=== PATIENT | male | born 1975 | race African-American/Black ===

== ENCOUNTER 2022-10-18 21:53 | Inpatient (IN) | payer OTHER ==
[~2022-10-18 21:53] MED LIST: ACETAMINOPHEN 325 MG TABLET (FP) PO PRN; BENZOCAINE/MENTHOL (CHLORASEPTIC ) LOZENGE MM PRN; BENZONATATE 200 MG CAPSULE PO PRN; BISMUTH SUBSALICYLATE 262 MG/15 ML BTL PO PRN; DICYCLOMINE HCL 10 MG CAPSULE PO PRN; IBUPROFEN 400 MG TABLET (FP) PO PRN; LOPERAMIDE HCL 2 MG CAPSULE PO PRN; LORazepam 1 MG TABLET PO PRN; LORazepam 2 MG TABLET ONE; LORazepam 2 MG TABLET PO ONE; MAG HYDROX/AL HYDROX/SIMETH 30 ML UNIT-DOSE CUP PO PRN; MAGNESIUM HYDROX 2400MG/30ML ORAL SUSPENSION 30 ML CUP PO PRN; NALOXONE HCL (KLOXXADO) 8 MG SPRAY NS PRN; NALOXONE HCL 0.4 MG/ML VIAL IM PRN; ONDANSETRON *ODT* 4 MG TABLET ONE; ONDANSETRON *ODT* 4 MG TABLET SL PRN; POLYETHYLENE GLYCOL (HEALTHYLAX) 3350 17 GM PACKET PO PRN; guaiFENesin 600 MG TABLET.ER (FP) PO PRN
[2022-10-18 22:29] VITALS: BMI 24.2
[2022-10-19] MEDS: IBUPROFEN 600 MG TABLET (FP) PO PRN ×3 (00:55→14:26)
[2022-10-19] MEDS: LORazepam 2 MG TABLET PO SCH ×5 (07:17→22:06)
[2022-10-19] MEDS: METHOCARBAMOL 500 MG TABLET PO PRN ×3 (07:55→22:06)
[2022-10-19] MEDS: NICOTINE 21 MG/24 HOURS TOPICAL PATCH TD SCH (10:41)
[2022-10-19] MEDS: hydrOXYzine PAMOATE 25 MG CAPSULE (FP) PO PRN (10:42)
[2022-10-19] MEDS: PRENATAL VITAMINS W/ FOLIC ACID TABLET (FP) PO SCH (10:44)
[2022-10-19 11:31] LABS: HEMATOCRIT 38.6 % (35.4-49); HEMOGLOBIN 13.4 GM/dL (11.7-16.9); MCH 31.8 pg (25.7-33.7); MCHC 34.7 g/dl (32.0-35.9); MEAN CELL VOLUME 91.7 fl (80-96); MEAN PLT VOLUME 10.5 fl (7.5-11.1); PLATELET COUNT 107 10^3/uL (134-434); RBC 4.21 M/mm3 (4.00-5.60); RDW 12.9 % (11.9-15.9); WHITE BLOOD COUNT 3.5 K/mm3 (4.0-10.0)
[2022-10-19 11:56] LABS: CALCIUM 8.9 mg/dL (8.5-10.1)
[2022-10-19 11:57] LABS: ALBUMIN 3.3 g/dl (3.4-5.0); BLOOD UREA NITROGEN 13.2 mg/dL (7-18)
[2022-10-19 12:00] LABS: CREATININE 0.9 mg/dL (0.55-1.3)
[2022-10-19 12:01] LABS: TOT PROT 7.3 g/dl (6.4-8.2)
[2022-10-19 12:02] LABS: BILIRUBIN,TOTAL 0.8 mg/dL (0.2-1)
[2022-10-19] MEDS: LACTULOSE 20 GM/30 ML UDC (FOR ORAL USE ONLY) PO SCH ×3 (14:23→22:26)
[2022-10-19] MEDS: THIAMINE HCL 100 MG TABLET (FP) PO SCH (22:04)
[2022-10-19] MEDS: MELATONIN 5 MG TABLETS PO SCH (22:05)
[2022-10-19] MEDS: ATORVASTATIN CA 40 MG TABLET (FP) PO SCH (22:06)
[2022-10-20] MEDS: NICOTINE 21 MG/24 HOURS TOPICAL PATCH TD SCH ×2 (00:58→10:23)
[2022-10-20] MEDS: THIAMINE HCL 100 MG TABLET (FP) PO SCH ×2 (00:59→22:13)
[2022-10-20] MEDS: LORazepam 2 MG TABLET PO SCH ×2 (00:59→01:00)
[2022-10-20] MEDS: MELATONIN 5 MG TABLETS PO SCH ×2 (00:59→22:14)
[2022-10-20] MEDS: LORazepam 1 MG TABLET PO SCH ×4 (06:25→22:13)
[2022-10-20] MEDS: METHOCARBAMOL 500 MG TABLET PO PRN ×2 (06:29→20:45)
[2022-10-20] MEDS: IBUPROFEN 600 MG TABLET (FP) PO PRN ×2 (06:30→20:45)
[2022-10-20] MEDS: LACTULOSE 20 GM/30 ML UDC (FOR ORAL USE ONLY) PO SCH ×4 (10:24→22:13)
[2022-10-20] MEDS: hydrOXYzine PAMOATE 25 MG CAPSULE (FP) PO PRN (10:24)
[2022-10-20] MEDS: PRENATAL VITAMINS W/ FOLIC ACID TABLET (FP) PO SCH (10:24)
[2022-10-20] MEDS ORDERED: PNEUMOC 20-VAL CONJ-DIP CRM/PF 0.5 ML SYRINGE IM ONE (12:00)
[2022-10-20] MEDS: DOCUSATE SODIUM 100 MG CAPSULE (FP) PO SCH ×2 (13:14→22:13)
[2022-10-20] MEDS: ATORVASTATIN CA 40 MG TABLET (FP) PO SCH (22:13)
[2022-10-21] MEDS ORDERED: LORazepam 0.5 MG TABLET PO PRN
[2022-10-21] MEDS: METHOCARBAMOL 500 MG TABLET PO PRN ×3 (02:04→17:13)
[2022-10-21] MEDS: hydrOXYzine PAMOATE 25 MG CAPSULE (FP) PO PRN ×2 (02:04→10:24)
[2022-10-21] MEDS: DOCUSATE SODIUM 100 MG CAPSULE (FP) PO SCH ×3 (05:18→22:12)
[2022-10-21] MEDS: LORazepam 0.5 MG TABLET PO SCH ×4 (05:18→22:12)
[2022-10-21] MEDS: IBUPROFEN 600 MG TABLET (FP) PO PRN (05:20)
[2022-10-21] MEDS: LACTULOSE 20 GM/30 ML UDC (FOR ORAL USE ONLY) PO SCH ×4 (10:23→22:13)
[2022-10-21] MEDS: NICOTINE 21 MG/24 HOURS TOPICAL PATCH TD SCH (10:23)
[2022-10-21] MEDS: PRENATAL VITAMINS W/ FOLIC ACID TABLET (FP) PO SCH (10:23)
[2022-10-21] MEDS ORDERED: LISINOPRIL 5 MG TABLET PO ONE (13:45)
[2022-10-21] MEDS: ATORVASTATIN CA 40 MG TABLET (FP) PO SCH (22:12)
[2022-10-21] MEDS: THIAMINE HCL 100 MG TABLET (FP) PO SCH (22:12)
[2022-10-21] MEDS: MELATONIN 5 MG TABLETS PO SCH (22:12)
[2022-10-22] MEDS ORDERED: LORazepam 0.5 MG TABLET PO ONE (05:00)
[2022-10-22] MEDS: DOCUSATE SODIUM 100 MG CAPSULE (FP) PO SCH (05:22)
[2022-10-22] MEDS: IBUPROFEN 600 MG TABLET (FP) PO PRN ×2 (05:23→10:26)
[2022-10-22] MEDS: METHOCARBAMOL 500 MG TABLET PO PRN (05:23)
[2022-10-22 09:24] VITALS: BP 136/90; PULSE 93; RESP 17; TEMP 97.7
[2022-10-22] MEDS: LACTULOSE 20 GM/30 ML UDC (FOR ORAL USE ONLY) PO SCH (10:24)
[2022-10-22] MEDS: NICOTINE 21 MG/24 HOURS TOPICAL PATCH TD SCH (10:24)
[2022-10-22] MEDS: PRENATAL VITAMINS W/ FOLIC ACID TABLET (FP) PO SCH (10:24)
== END 2022-10-22 12:54 | disposition home or self-care (01) | DRG 775 ==
LOC: YASAS 21:53 → Y6N 23:48
PROVIDERS: ADMIT Allergy & Immunology; ATTEND Surgery
PROC: HZ2ZZZZ Detoxification Services for Substance Abuse Treatment (ICD-10-PCS; principal; 2022-10-18)
DX: F10.230 Alcohol dependence with withdrawal, uncomplicated (principal); F15.10 Other stimulant abuse, uncomplicated; F12.10 Cannabis abuse, uncomplicated; F17.210 Nicotine dependence, cigarettes, uncomplicated; F10.280 Alcohol dependence with alcohol-induced anxiety disorder; F10.24 Alcohol dependence with alcohol-induced mood disorder; F10.282 Alcohol dependence with alcohol-induced sleep disorder; K92.2 Gastrointestinal hemorrhage, unspecified; E78.5 Hyperlipidemia, unspecified; I10 Essential (primary) hypertension; R79.89 Other specified abnormal findings of blood chemistry; Z59.00 Homelessness unspecified; Z56.0 Unemployment, unspecified
CPT/HCPCS: 0241U-QW; 36415; 74177-TC; 80053; 82140; 82272; 83605; 83690; 83735; 85025; 85027; 85610; 85730; 86780; 86850; 86900; 86901; 87635; 90677; 93005; 93010; 99282-25; Q0162; Q9967

== ENCOUNTER 2022-11-09 15:00 | Inpatient (IN) | payer OTHER ==
[2022-11-09 15:47] VITALS: BMI 23.3
[2022-11-09] MEDS ORDERED: LOPERAMIDE HCL 2 MG CAPSULE PO PRN (21:24)
[2022-11-09] MEDS ORDERED: guaiFENesin 600 MG TABLET.ER (FP) PO PRN (21:24)
[2022-11-09] MEDS ORDERED: hydrOXYzine PAMOATE 25 MG CAPSULE (FP) PO PRN (21:24)
[2022-11-09] MEDS ORDERED: POLYETHYLENE GLYCOL (HEALTHYLAX) 3350 17 GM PACKET PO PRN (21:24)
[2022-11-09] MEDS ORDERED: ONDANSETRON *ODT* 4 MG TABLET SL PRN (21:24)
[2022-11-09] MEDS ORDERED: BISMUTH SUBSALICYLATE 524 MG/30 ML PO PRN (21:24)
[2022-11-09] MEDS ORDERED: MAG HYDROX/AL HYDROX/SIMETH 30 ML UNIT-DOSE CUP PO PRN (21:24)
[2022-11-09] MEDS ORDERED: IBUPROFEN 400 MG TABLET (FP) PO PRN (21:24)
[2022-11-09] MEDS ORDERED: ACETAMINOPHEN 325 MG TABLET (FP) PO PRN (21:24)
[2022-11-09] MEDS ORDERED: NALOXONE HCL 0.4 MG/ML VIAL IM PRN (21:24)
[2022-11-09] MEDS ORDERED: NICOTINE 10 MG CARTRIDGE (INHALER) IH PRN (21:24)
[2022-11-09] MEDS ORDERED: BENZOCAINE/MENTHOL (CHLORASEPTIC ) LOZENGE MM PRN (21:24)
[2022-11-09] MEDS ORDERED: DICYCLOMINE HCL 10 MG CAPSULE PO PRN (21:24)
[2022-11-09] MEDS ORDERED: NALOXONE HCL (KLOXXADO) 8 MG SPRAY NS PRN (21:24)
[2022-11-09] MEDS ORDERED: BENZONATATE 200 MG CAPSULE PO PRN (21:24)
[2022-11-09] MEDS ORDERED: MAGNESIUM HYDROX 2400MG/30ML ORAL SUSPENSION 30 ML CUP PO PRN (21:24)
[2022-11-09] MEDS ORDERED: LORazepam 1 MG TABLET PO PRN (21:29)
[2022-11-09] MEDS ORDERED: MELATONIN 5 MG TABLETS PO SCH (22:00)
[2022-11-09] MEDS ORDERED: IBUPROFEN 600 MG TABLET (FP) PO ONE (22:16)
[2022-11-09] MEDS: IBUPROFEN 600 MG TABLET (FP) PO PRN (22:19)
[2022-11-09] MEDS: LORazepam 2 MG TABLET PO SCH (23:14)
[2022-11-09] MEDS: METHOCARBAMOL 500 MG TABLET PO PRN (23:14)
[2022-11-09] MEDS: THIAMINE HCL 100 MG TABLET (FP) PO SCH (23:14)
[2022-11-10] MEDS: LORazepam 2 MG TABLET PO SCH ×4 (05:54→22:16)
[2022-11-10] MEDS: IBUPROFEN 600 MG TABLET (FP) PO PRN (05:56)
[2022-11-10] MEDS: PRENATAL VITAMINS W/ FOLIC ACID TABLET (FP) PO SCH (10:14)
[2022-11-10] MEDS: NICOTINE 21 MG/24 HOURS TOPICAL PATCH TD SCH (10:14)
[2022-11-10 11:44] LABS: HEMATOCRIT 37.5 % (35.4-49); HEMOGLOBIN 12.5 GM/dL (11.7-16.9); MCH 30.8 pg (25.7-33.7); MCHC 33.4 g/dl (32.0-35.9); MEAN CELL VOLUME 92.3 fl (80-96); MEAN PLT VOLUME 9.7 fl (7.5-11.1); PLATELET COUNT 103 10^3/uL (134-434); RBC 4.07 M/mm3 (4.00-5.60); RDW 12.7 % (11.9-15.9); WHITE BLOOD COUNT 3.2 K/mm3 (4.0-10.0)
[2022-11-10 11:45] LABS: POTASSIUM 3.9 mmol/L (3.5-5.1)
[2022-11-10 11:47] LABS: ALBUMIN 3.3 g/dl (3.4-5.0); CALCIUM 8.9 mg/dL (8.5-10.1)
[2022-11-10 11:48] LABS: BLOOD UREA NITROGEN 13.2 mg/dL (7-18)
[2022-11-10 11:51] LABS: CREATININE 0.8 mg/dL (0.55-1.3)
[2022-11-10 11:52] LABS: BILIRUBIN,TOTAL 0.5 mg/dL (0.2-1)
[2022-11-10] MEDS: MELATONIN 5 MG TABLETS PO SCH (22:15)
[2022-11-10] MEDS: THIAMINE HCL 100 MG TABLET (FP) PO SCH (22:15)
[2022-11-10] MEDS: METHOCARBAMOL 500 MG TABLET PO PRN (22:15)
[2022-11-10] MEDS: ATORVASTATIN CA 40 MG TABLET (FP) PO SCH (22:17)
[2022-11-11] MEDS: LORazepam 1 MG TABLET PO SCH ×4 (05:35→22:06)
[2022-11-11] MEDS: NICOTINE 21 MG/24 HOURS TOPICAL PATCH TD SCH (10:23)
[2022-11-11] MEDS: PRENATAL VITAMINS W/ FOLIC ACID TABLET (FP) PO SCH (10:23)
[2022-11-11 21:50] VITALS: RESP 18
[2022-11-11] MEDS: ATORVASTATIN CA 40 MG TABLET (FP) PO SCH (22:05)
[2022-11-11] MEDS: THIAMINE HCL 100 MG TABLET (FP) PO SCH (22:05)
[2022-11-11] MEDS: MELATONIN 5 MG TABLETS PO SCH (22:05)
[2022-11-11] MEDS: METHOCARBAMOL 500 MG TABLET PO PRN (22:08)
[2022-11-12] MEDS ORDERED: LORazepam 0.5 MG TABLET PO PRN
[2022-11-12] MEDS: LORazepam 0.5 MG TABLET PO SCH ×3 (05:24→17:00)
[2022-11-12] MEDS: PRENATAL VITAMINS W/ FOLIC ACID TABLET (FP) PO SCH (10:28)
[2022-11-12] MEDS: IBUPROFEN 600 MG TABLET (FP) PO PRN (10:28)
[2022-11-12] MEDS: NICOTINE 21 MG/24 HOURS TOPICAL PATCH TD SCH (10:28)
[2022-11-12 19:05] VITALS: BP 157/101; PULSE 79; TEMP 97.7
[2022-11-13] MEDS ORDERED: LORazepam 0.5 MG TABLET PO ONE (05:00)
== END 2022-11-12 17:06 | disposition home or self-care (01) | DRG 775 ==
LOC: YASAS 15:00 → Y3N 22:45
PROVIDERS: ADMIT Allergy & Immunology; ATTEND Surgery
PROC: HZ2ZZZZ Detoxification Services for Substance Abuse Treatment (ICD-10-PCS; principal; 2022-11-09)
DX: F10.230 Alcohol dependence with withdrawal, uncomplicated (principal); F17.210 Nicotine dependence, cigarettes, uncomplicated; F10.282 Alcohol dependence with alcohol-induced sleep disorder; F10.24 Alcohol dependence with alcohol-induced mood disorder; E78.5 Hyperlipidemia, unspecified; I10 Essential (primary) hypertension; Z87.19 Personal history of other diseases of the digestive system; Z56.0 Unemployment, unspecified; Z59.00 Homelessness unspecified; Z88.0 Allergy status to penicillin
CPT/HCPCS: 36415; 80053; 85027; 86780; 87635

== ENCOUNTER 2023-02-25 11:48 | Inpatient (IN) | payer OTHER ==
[2023-02-25 12:37] VITALS: BMI 24.2
[2023-02-25] MEDS ORDERED: BENZONATATE 200 MG CAPSULE PO PRN (14:42)
[2023-02-25] MEDS ORDERED: DICYCLOMINE HCL 10 MG CAPSULE PO PRN (14:42)
[2023-02-25] MEDS ORDERED: chlordiazePOXIDE HCL 25 MG CAPSULE PO PRN (14:42)
[2023-02-25] MEDS ORDERED: NALOXONE HCL 0.4 MG/ML VIAL IM PRN (14:42)
[2023-02-25] MEDS ORDERED: POLYETHYLENE GLYCOL (HEALTHYLAX) 3350 17 GM PACKET PO PRN (14:42)
[2023-02-25] MEDS ORDERED: MAG HYDROX/AL HYDROX/SIMETH 30 ML UNIT-DOSE CUP PO PRN (14:42)
[2023-02-25] MEDS ORDERED: ONDANSETRON *ODT* 4 MG TABLET SL PRN (14:42)
[2023-02-25] MEDS ORDERED: NALOXONE HCL (KLOXXADO) 8 MG SPRAY NS PRN (14:42)
[2023-02-25] MEDS ORDERED: BENZOCAINE/MENTHOL (CHLORASEPTIC ) LOZENGE MM PRN (14:42)
[2023-02-25] MEDS ORDERED: LOPERAMIDE HCL 2 MG CAPSULE PO PRN (14:42)
[2023-02-25] MEDS ORDERED: BISMUTH SUBSALICYLATE 524 MG/30 ML PO PRN (14:42)
[2023-02-25] MEDS ORDERED: MAGNESIUM HYDROX 2400MG/30ML ORAL SUSPENSION 30 ML CUP PO PRN (14:42)
[2023-02-25] MEDS ORDERED: guaiFENesin 600 MG TABLET.ER (FP) PO PRN (14:42)
[2023-02-25] MEDS: hydrOXYzine PAMOATE 25 MG CAPSULE (FP) PO PRN (15:40)
[2023-02-25] MEDS: NICOTINE 21 MG/24 HOURS TOPICAL PATCH TD SCH (15:40)
[2023-02-25] MEDS: chlordiazePOXIDE HCL 25 MG CAPSULE PO SCH ×2 (17:16→22:27)
[2023-02-25] MEDS: ATORVASTATIN CA 40 MG TABLET (FP) PO SCH (22:26)
[2023-02-25] MEDS: MELATONIN 5 MG TABLETS PO SCH (22:27)
[2023-02-25] MEDS: THIAMINE HCL 100 MG TABLET (FP) PO SCH (22:27)
[2023-02-25] MEDS: ACETAMINOPHEN 325 MG TABLET (FP) PO PRN (22:28)
[2023-02-25] MEDS: cloNIDine HCL 0.1 MG TABLET PO PRN (22:28)
[2023-02-26] MEDS: chlordiazePOXIDE HCL 25 MG CAPSULE PO SCH ×4 (05:48→22:26)
[2023-02-26] MEDS: IBUPROFEN 400 MG TABLET (FP) PO PRN (05:49)
[2023-02-26] MEDS: PRENATAL VITAMINS W/ FOLIC ACID TABLET (FP) PO SCH (10:09)
[2023-02-26] MEDS: NICOTINE 21 MG/24 HOURS TOPICAL PATCH TD SCH (10:09)
[2023-02-26 10:28] LABS: HEMATOCRIT 36.9 % (35.4-49); HEMOGLOBIN 12.8 GM/dL (11.7-16.9); MCH 32.3 pg (25.7-33.7); MCHC 34.6 g/dl (32.0-35.9); MEAN CELL VOLUME 93.4 fl (80-96); MEAN PLT VOLUME 9.7 fl (7.5-11.1); PLATELET COUNT 110 10^3/uL (134-434); RBC 3.95 M/mm3 (4.00-5.60); RDW 13.2 % (11.9-15.9); WHITE BLOOD COUNT 2.9 K/mm3 (4.0-10.0)
[2023-02-26 11:21] LABS: POTASSIUM 3.9 mmol/L (3.5-5.1)
[2023-02-26 11:24] LABS: CALCIUM 8.4 mg/dL (8.5-10.1)
[2023-02-26 11:25] LABS: BLOOD UREA NITROGEN 15.7 mg/dL (7-18)
[2023-02-26 11:27] LABS: CREATININE 0.8 mg/dL (0.55-1.3)
[2023-02-26 11:28] LABS: BILIRUBIN,TOTAL 0.4 mg/dL (0.2-1); TOT PROT 6.4 g/dl (6.4-8.2)
[2023-02-26] MEDS: HYDROCORTISONE 1% TOPICAL CREAM 30 GM TUBE TP SCH (15:52)
[2023-02-26] MEDS: cloNIDine HCL 0.1 MG TABLET PO PRN ×2 (17:47→22:28)
[2023-02-26] MEDS: ACETAMINOPHEN 325 MG TABLET (FP) PO PRN (17:48)
[2023-02-26] MEDS: MELATONIN 5 MG TABLETS PO SCH (22:26)
[2023-02-26] MEDS: ATORVASTATIN CA 40 MG TABLET (FP) PO SCH (22:26)
[2023-02-26] MEDS: THIAMINE HCL 100 MG TABLET (FP) PO SCH (22:26)
[2023-02-26] MEDS: METHOCARBAMOL 500 MG TABLET PO PRN (22:28)
[2023-02-27] MEDS: IBUPROFEN 600 MG TABLET (FP) PO PRN ×2 (03:16→17:23)
[2023-02-27] MEDS: chlordiazePOXIDE HCL 25 MG CAPSULE PO SCH ×4 (05:24→22:09)
[2023-02-27] MEDS: PRENATAL VITAMINS W/ FOLIC ACID TABLET (FP) PO SCH (10:15)
[2023-02-27] MEDS: HYDROCORTISONE 1% TOPICAL CREAM 30 GM TUBE TP SCH (10:18)
[2023-02-27] MEDS: NICOTINE 21 MG/24 HOURS TOPICAL PATCH TD SCH (10:18)
[2023-02-27] MEDS: LIDOCAINE 5% TOPICAL PATCH TP SCH (11:48)
[2023-02-27] MEDS: METHOCARBAMOL 500 MG TABLET PO PRN (17:23)
[2023-02-27] MEDS: LIDOCAINE PATCH REMOVAL MC SCH (22:08)
[2023-02-27] MEDS: MELATONIN 5 MG TABLETS PO SCH (22:09)
[2023-02-27] MEDS: THIAMINE HCL 100 MG TABLET (FP) PO SCH (22:09)
[2023-02-27] MEDS: ATORVASTATIN CA 40 MG TABLET (FP) PO SCH (22:09)
[2023-02-28] MEDS ORDERED: chlordiazePOXIDE HCL 10 MG CAPSULE PO PRN
[2023-02-28] MEDS: chlordiazePOXIDE HCL 10 MG CAPSULE PO SCH ×4 (05:45→22:05)
[2023-02-28] MEDS ORDERED: LACTULOSE 20 GM/30 ML UDC (FOR ORAL USE ONLY) PO ONE (07:40)
[2023-02-28] MEDS: PRENATAL VITAMINS W/ FOLIC ACID TABLET (FP) PO SCH (10:07)
[2023-02-28] MEDS: HYDROCORTISONE 1% TOPICAL CREAM 30 GM TUBE TP SCH (10:07)
[2023-02-28] MEDS: NICOTINE 21 MG/24 HOURS TOPICAL PATCH TD SCH (10:07)
[2023-02-28] MEDS: LIDOCAINE 5% TOPICAL PATCH TP SCH (10:10)
[2023-02-28] MEDS: ACETAMINOPHEN 325 MG TABLET (FP) PO PRN (17:24)
[2023-02-28] MEDS: THIAMINE HCL 100 MG TABLET (FP) PO SCH (22:05)
[2023-02-28] MEDS: MELATONIN 5 MG TABLETS PO SCH (22:05)
[2023-02-28] MEDS: ATORVASTATIN CA 40 MG TABLET (FP) PO SCH (22:05)
[2023-02-28] MEDS: LIDOCAINE PATCH REMOVAL MC SCH (22:06)
[2023-02-28] MEDS: METHOCARBAMOL 500 MG TABLET PO PRN (22:07)
[2023-03-01] MEDS: ACETAMINOPHEN 325 MG TABLET (FP) PO PRN (00:56)
[2023-03-01] MEDS: chlordiazePOXIDE HCL 10 MG CAPSULE PO SCH ×2 (05:42→17:39)
[2023-03-01] MEDS: LIDOCAINE 5% TOPICAL PATCH TP SCH (10:09)
[2023-03-01] MEDS: NICOTINE 21 MG/24 HOURS TOPICAL PATCH TD SCH (10:10)
[2023-03-01] MEDS: PRENATAL VITAMINS W/ FOLIC ACID TABLET (FP) PO SCH (10:11)
[2023-03-01] MEDS: HYDROCORTISONE 1% TOPICAL CREAM 30 GM TUBE TP SCH (10:11)
[2023-03-01] MEDS: LIDOCAINE PATCH REMOVAL MC SCH (22:02)
[2023-03-01] MEDS: IBUPROFEN 400 MG TABLET (FP) PO PRN (22:03)
[2023-03-01] MEDS: MELATONIN 5 MG TABLETS PO SCH (22:04)
[2023-03-01] MEDS: METHOCARBAMOL 500 MG TABLET PO PRN (22:04)
[2023-03-01] MEDS: hydrOXYzine PAMOATE 25 MG CAPSULE (FP) PO PRN (22:04)
[2023-03-01] MEDS: THIAMINE HCL 100 MG TABLET (FP) PO SCH (22:05)
[2023-03-01] MEDS: ATORVASTATIN CA 40 MG TABLET (FP) PO SCH (22:05)
[2023-03-02] MEDS ORDERED: chlordiazePOXIDE HCL 10 MG CAPSULE PO ONE (05:00)
[2023-03-02 09:53] VITALS: TEMP 97.3
[2023-03-02] MEDS: PRENATAL VITAMINS W/ FOLIC ACID TABLET (FP) PO SCH (10:21)
[2023-03-02] MEDS: LIDOCAINE 5% TOPICAL PATCH TP SCH (10:23)
[2023-03-02] MEDS: HYDROCORTISONE 1% TOPICAL CREAM 30 GM TUBE TP SCH (10:24)
[2023-03-02] MEDS: NICOTINE 21 MG/24 HOURS TOPICAL PATCH TD SCH (10:24)
[2023-03-02 14:26] VITALS: BP 136/86; PULSE 80; RESP 17
== END 2023-03-02 14:30 | disposition home or self-care (01) | DRG 775 ==
LOC: SUATTDRO 11:48 → YASAS 11:48 → Y3N 14:59
PROVIDERS: ADMIT Allergy & Immunology; ATTEND Surgery
PROC: HZ2ZZZZ Detoxification Services for Substance Abuse Treatment (ICD-10-PCS; principal; 2023-02-25)
DX: F10.230 Alcohol dependence with withdrawal, uncomplicated (principal); F12.10 Cannabis abuse, uncomplicated; F17.210 Nicotine dependence, cigarettes, uncomplicated; E78.2 Mixed hyperlipidemia; I10 Essential (primary) hypertension; Z88.0 Allergy status to penicillin
CPT/HCPCS: 36415; 80053; 85027; 86780; 87635; 87811

== ENCOUNTER 2023-03-02 14:42 | Inpatient (IN) | payer OTHER ==
[2023-03-02] MEDS ORDERED: FLU VACCINE (FLULAVAL) PF 60 MCG/0.5 ML SYRINGE 2023-2024 IM ONE (15:44)
[2023-03-02] MEDS ORDERED: COLLOIDAL OATMEAL 1 BAR EACH TP PRN (15:52)
[2023-03-02] MEDS ORDERED: NICOTINE POLACRILEX 4 MG GUM BUC PRN (15:52)
[2023-03-02] MEDS ORDERED: BENZONATATE 200 MG CAPSULE PO PRN (15:52)
[2023-03-02] MEDS ORDERED: NALOXONE HCL 0.4 MG/ML VIAL IVPUSH PRN (15:52)
[2023-03-02] MEDS ORDERED: guaiFENesin 600 MG TABLET.ER (FP) PO PRN (15:52)
[2023-03-02] MEDS ORDERED: ACETAMINOPHEN 325 MG TABLET (FP) PO PRN (15:52)
[2023-03-02] MEDS ORDERED: NALOXONE HCL (KLOXXADO) 8 MG SPRAY NS PRN (15:52)
[2023-03-02] MEDS ORDERED: MAGNESIUM HYDROX 2400MG/30ML ORAL SUSPENSION 30 ML CUP PO PRN (15:52)
[2023-03-02] MEDS ORDERED: MAG HYDROX/AL HYDROX/SIMETH 30 ML UNIT-DOSE CUP PO PRN (15:52)
[2023-03-02] MEDS ORDERED: LOPERAMIDE HCL 2 MG CAPSULE PO PRN (15:52)
[2023-03-02] MEDS ORDERED: BENZOCAINE/MENTHOL (CHLORASEPTIC ) LOZENGE MM PRN (15:52)
[2023-03-02] MEDS ORDERED: hydrOXYzine PAMOATE 25 MG CAPSULE (FP) PO PRN (15:52)
[2023-03-02] MEDS ORDERED: POLYETHYLENE GLYCOL (HEALTHYLAX) 3350 17 GM PACKET PO PRN (15:52)
[2023-03-02] MEDS: PRENATAL VITAMINS W/ FOLIC ACID TABLET (FP) PO SCH (16:58)
[2023-03-02] MEDS: MELATONIN 5 MG TABLETS PO SCH (21:14)
[2023-03-02] MEDS: THIAMINE HCL 100 MG TABLET (FP) PO SCH (21:14)
[2023-03-02] MEDS: IBUPROFEN 600 MG TABLET (FP) PO PRN (21:15)
[2023-03-02] MEDS: ATORVASTATIN CA 40 MG TABLET (FP) PO SCH (21:15)
[2023-03-03] MEDS: PRENATAL VITAMINS W/ FOLIC ACID TABLET (FP) PO SCH (09:47)
[2023-03-03] MEDS: NICOTINE 21 MG/24 HOURS TOPICAL PATCH TD SCH (09:47)
[2023-03-03] MEDS: METHOCARBAMOL 500 MG TABLET PO PRN (09:51)
[2023-03-03] MEDS ORDERED: FLU VACCINE (FLULAVAL) PF 60 MCG/0.5 ML SYRINGE 2023-2024 IM ONE (10:00)
[2023-03-03] MEDS: ATORVASTATIN CA 40 MG TABLET (FP) PO SCH (21:10)
[2023-03-03] MEDS: THIAMINE HCL 100 MG TABLET (FP) PO SCH (21:11)
[2023-03-03] MEDS: IBUPROFEN 400 MG TABLET (FP) PO PRN (21:11)
[2023-03-03] MEDS: MELATONIN 5 MG TABLETS PO SCH (21:11)
[2023-03-04] MEDS: METHOCARBAMOL 500 MG TABLET PO PRN (06:20)
[2023-03-04] MEDS: PRENATAL VITAMINS W/ FOLIC ACID TABLET (FP) PO SCH (09:21)
[2023-03-04] MEDS: NICOTINE 21 MG/24 HOURS TOPICAL PATCH TD SCH (09:21)
[2023-03-04] MEDS: MELATONIN 5 MG TABLETS PO SCH (21:06)
[2023-03-04] MEDS: THIAMINE HCL 100 MG TABLET (FP) PO SCH (21:06)
[2023-03-04] MEDS: ATORVASTATIN CA 40 MG TABLET (FP) PO SCH (21:07)
[2023-03-04] MEDS: IBUPROFEN 600 MG TABLET (FP) PO PRN (21:08)
[2023-03-05] MEDS: NICOTINE 21 MG/24 HOURS TOPICAL PATCH TD SCH (09:55)
[2023-03-05] MEDS: PRENATAL VITAMINS W/ FOLIC ACID TABLET (FP) PO SCH (09:55)
[2023-03-05] MEDS: ATORVASTATIN CA 40 MG TABLET (FP) PO SCH (21:26)
[2023-03-05] MEDS: MELATONIN 5 MG TABLETS PO SCH (21:26)
[2023-03-05] MEDS: THIAMINE HCL 100 MG TABLET (FP) PO SCH (21:26)
[2023-03-05] MEDS: IBUPROFEN 600 MG TABLET (FP) PO PRN (21:27)
[2023-03-06] MEDS: PRENATAL VITAMINS W/ FOLIC ACID TABLET (FP) PO SCH (10:14)
[2023-03-06] MEDS: NICOTINE 21 MG/24 HOURS TOPICAL PATCH TD SCH (10:14)
[2023-03-06] MEDS: LACTULOSE 20 GM/30 ML UDC (FOR ORAL USE ONLY) PO SCH ×2 (13:19→21:06)
[2023-03-06] MEDS: CLINDAMYCIN HCL 150 MG CAPSULE (FP) PO SCH ×2 (13:19→21:06)
[2023-03-06] MEDS: MELATONIN 5 MG TABLETS PO SCH (21:06)
[2023-03-06] MEDS: ATORVASTATIN CA 40 MG TABLET (FP) PO SCH (21:06)
[2023-03-06] MEDS: THIAMINE HCL 100 MG TABLET (FP) PO SCH (21:06)
[2023-03-07] MEDS: CLINDAMYCIN HCL 150 MG CAPSULE (FP) PO SCH ×3 (06:22→21:41)
[2023-03-07] MEDS: LACTULOSE 20 GM/30 ML UDC (FOR ORAL USE ONLY) PO SCH ×3 (06:22→21:41)
[2023-03-07] MEDS: NICOTINE 21 MG/24 HOURS TOPICAL PATCH TD SCH (09:36)
[2023-03-07] MEDS: PRENATAL VITAMINS W/ FOLIC ACID TABLET (FP) PO SCH (09:37)
[2023-03-07] MEDS: IBUPROFEN 600 MG TABLET (FP) PO PRN ×2 (09:38→21:42)
[2023-03-07] MEDS: ATORVASTATIN CA 40 MG TABLET (FP) PO SCH (21:41)
[2023-03-07] MEDS: THIAMINE HCL 100 MG TABLET (FP) PO SCH (21:41)
[2023-03-07] MEDS: MELATONIN 5 MG TABLETS PO SCH (21:42)
[2023-03-08] MEDS: CLINDAMYCIN HCL 150 MG CAPSULE (FP) PO SCH ×3 (06:23→21:12)
[2023-03-08] MEDS: LACTULOSE 20 GM/30 ML UDC (FOR ORAL USE ONLY) PO SCH ×3 (06:24→21:12)
[2023-03-08] MEDS: NICOTINE 21 MG/24 HOURS TOPICAL PATCH TD SCH (09:57)
[2023-03-08] MEDS: PRENATAL VITAMINS W/ FOLIC ACID TABLET (FP) PO SCH (09:57)
[2023-03-08] MEDS: ATORVASTATIN CA 40 MG TABLET (FP) PO SCH (21:12)
[2023-03-08] MEDS: THIAMINE HCL 100 MG TABLET (FP) PO SCH (21:12)
[2023-03-08] MEDS: MELATONIN 5 MG TABLETS PO SCH (21:12)
[2023-03-09] MEDS: LACTULOSE 20 GM/30 ML UDC (FOR ORAL USE ONLY) PO SCH ×3 (06:29→21:36)
[2023-03-09] MEDS: CLINDAMYCIN HCL 150 MG CAPSULE (FP) PO SCH ×3 (06:29→21:36)
[2023-03-09] MEDS: PRENATAL VITAMINS W/ FOLIC ACID TABLET (FP) PO SCH (10:09)
[2023-03-09] MEDS: NICOTINE 21 MG/24 HOURS TOPICAL PATCH TD SCH (10:09)
[2023-03-09] MEDS: IBUPROFEN 600 MG TABLET (FP) PO PRN (10:11)
[2023-03-09] MEDS: ATORVASTATIN CA 40 MG TABLET (FP) PO SCH (21:36)
[2023-03-09] MEDS: IBUPROFEN 400 MG TABLET (FP) PO PRN (21:36)
[2023-03-09] MEDS: THIAMINE HCL 100 MG TABLET (FP) PO SCH (21:38)
[2023-03-09] MEDS: MELATONIN 5 MG TABLETS PO SCH (23:15)
[2023-03-10] MEDS: CLINDAMYCIN HCL 150 MG CAPSULE (FP) PO SCH ×3 (06:11→21:06)
[2023-03-10] MEDS: LACTULOSE 20 GM/30 ML UDC (FOR ORAL USE ONLY) PO SCH ×3 (06:11→21:05)
[2023-03-10] MEDS: PRENATAL VITAMINS W/ FOLIC ACID TABLET (FP) PO SCH (09:34)
[2023-03-10] MEDS: NICOTINE 21 MG/24 HOURS TOPICAL PATCH TD SCH (09:34)
[2023-03-10] MEDS: IBUPROFEN 600 MG TABLET (FP) PO PRN (09:35)
[2023-03-10] MEDS: ATORVASTATIN CA 40 MG TABLET (FP) PO SCH (21:05)
[2023-03-10] MEDS: THIAMINE HCL 100 MG TABLET (FP) PO SCH (21:05)
[2023-03-10] MEDS: MELATONIN 5 MG TABLETS PO SCH (21:05)
[2023-03-11] MEDS: LACTULOSE 20 GM/30 ML UDC (FOR ORAL USE ONLY) PO SCH ×3 (06:17→21:24)
[2023-03-11] MEDS: CLINDAMYCIN HCL 150 MG CAPSULE (FP) PO SCH ×3 (06:17→21:24)
[2023-03-11] MEDS: NICOTINE 21 MG/24 HOURS TOPICAL PATCH TD SCH (09:40)
[2023-03-11] MEDS: PRENATAL VITAMINS W/ FOLIC ACID TABLET (FP) PO SCH (09:40)
[2023-03-11] MEDS: IBUPROFEN 600 MG TABLET (FP) PO PRN (09:41)
[2023-03-11] MEDS: MELATONIN 5 MG TABLETS PO SCH (21:25)
[2023-03-11] MEDS: ATORVASTATIN CA 40 MG TABLET (FP) PO SCH (21:25)
[2023-03-11] MEDS: IBUPROFEN 400 MG TABLET (FP) PO PRN (21:25)
[2023-03-11] MEDS: THIAMINE HCL 100 MG TABLET (FP) PO SCH (21:25)
[2023-03-12] MEDS: CLINDAMYCIN HCL 150 MG CAPSULE (FP) PO SCH ×3 (06:21→21:30)
[2023-03-12] MEDS: LACTULOSE 20 GM/30 ML UDC (FOR ORAL USE ONLY) PO SCH ×3 (06:21→21:30)
[2023-03-12] MEDS: PRENATAL VITAMINS W/ FOLIC ACID TABLET (FP) PO SCH (09:37)
[2023-03-12] MEDS: NICOTINE 21 MG/24 HOURS TOPICAL PATCH TD SCH (09:37)
[2023-03-12] MEDS: IBUPROFEN 400 MG TABLET (FP) PO PRN ×2 (09:38→21:31)
[2023-03-12] MEDS: THIAMINE HCL 100 MG TABLET (FP) PO SCH (21:29)
[2023-03-12] MEDS: ATORVASTATIN CA 40 MG TABLET (FP) PO SCH (21:29)
[2023-03-12] MEDS: MELATONIN 5 MG TABLETS PO SCH (21:45)
[2023-03-13] MEDS: CLINDAMYCIN HCL 150 MG CAPSULE (FP) PO SCH ×3 (06:16→21:18)
[2023-03-13] MEDS: LACTULOSE 20 GM/30 ML UDC (FOR ORAL USE ONLY) PO SCH ×3 (06:16→21:18)
[2023-03-13] MEDS: PRENATAL VITAMINS W/ FOLIC ACID TABLET (FP) PO SCH (09:57)
[2023-03-13] MEDS: NICOTINE 21 MG/24 HOURS TOPICAL PATCH TD SCH (09:58)
[2023-03-13] MEDS: IBUPROFEN 600 MG TABLET (FP) PO PRN (09:59)
[2023-03-13] MEDS ORDERED: NALTREXONE MICROSPHERES (VIVITROL) 380 MG DISP.SYRIN IM ONE (12:35)
[2023-03-13] MEDS ORDERED: NALTREXONE HCL 50 MG TABLET PO ONE (13:00)
[2023-03-13] MEDS ORDERED: NALTREXONE HCL 50 MG TABLET PO SCH (13:00)
[2023-03-13] MEDS: BENZOCAINE 20 % GEL TUBE MM PRN (13:03)
[2023-03-13] MEDS: THIAMINE HCL 100 MG TABLET (FP) PO SCH (21:18)
[2023-03-13] MEDS: MELATONIN 5 MG TABLETS PO SCH (21:18)
[2023-03-13] MEDS: ATORVASTATIN CA 40 MG TABLET (FP) PO SCH (21:18)
[2023-03-14] MEDS: LACTULOSE 20 GM/30 ML UDC (FOR ORAL USE ONLY) PO SCH ×3 (06:43→21:16)
[2023-03-14] MEDS: CLINDAMYCIN HCL 150 MG CAPSULE (FP) PO SCH ×3 (06:43→21:16)
[2023-03-14] MEDS: PRENATAL VITAMINS W/ FOLIC ACID TABLET (FP) PO SCH (09:46)
[2023-03-14] MEDS: BENZOCAINE 20 % GEL TUBE MM PRN ×2 (09:46→21:17)
[2023-03-14] MEDS: NICOTINE 21 MG/24 HOURS TOPICAL PATCH TD SCH (09:46)
[2023-03-14] MEDS: IBUPROFEN 600 MG TABLET (FP) PO PRN (09:47)
[2023-03-14] MEDS ORDERED: NALTREXONE HCL 50 MG TABLET PO SCH (10:00)
[2023-03-14] MEDS: NALTREXONE HCL 50 MG TABLET PO SCH (10:16)
[2023-03-14] MEDS: ATORVASTATIN CA 40 MG TABLET (FP) PO SCH (21:16)
[2023-03-14] MEDS: THIAMINE HCL 100 MG TABLET (FP) PO SCH (21:16)
[2023-03-14] MEDS: MELATONIN 5 MG TABLETS PO SCH (23:14)
[2023-03-15] MEDS: LACTULOSE 20 GM/30 ML UDC (FOR ORAL USE ONLY) PO SCH ×3 (06:13→21:16)
[2023-03-15] MEDS: CLINDAMYCIN HCL 150 MG CAPSULE (FP) PO SCH ×3 (06:13→21:16)
[2023-03-15] MEDS: PRENATAL VITAMINS W/ FOLIC ACID TABLET (FP) PO SCH (10:08)
[2023-03-15] MEDS: NICOTINE 21 MG/24 HOURS TOPICAL PATCH TD SCH (10:08)
[2023-03-15] MEDS: NALTREXONE HCL 50 MG TABLET PO SCH (10:08)
[2023-03-15] MEDS: BENZOCAINE 20 % GEL TUBE MM PRN (10:08)
[2023-03-15] MEDS: ATORVASTATIN CA 40 MG TABLET (FP) PO SCH (21:16)
[2023-03-15] MEDS: THIAMINE HCL 100 MG TABLET (FP) PO SCH (21:16)
[2023-03-15] MEDS: MELATONIN 5 MG TABLETS PO SCH (21:16)
[2023-03-16] MEDS ORDERED: NALTREXONE MICROSPHERES (VIVITROL) 380 MG DISP.SYRIN IM ONE ×2 (06:00→10:00)
[2023-03-16] MEDS: CLINDAMYCIN HCL 150 MG CAPSULE (FP) PO SCH ×2 (06:27→13:10)
[2023-03-16] MEDS: LACTULOSE 20 GM/30 ML UDC (FOR ORAL USE ONLY) PO SCH ×3 (06:28→21:32)
[2023-03-16] MEDS: PRENATAL VITAMINS W/ FOLIC ACID TABLET (FP) PO SCH (09:47)
[2023-03-16] MEDS: NICOTINE 21 MG/24 HOURS TOPICAL PATCH TD SCH (09:49)
[2023-03-16] MEDS: IBUPROFEN 400 MG TABLET (FP) PO PRN (13:12)
[2023-03-16] MEDS: THIAMINE HCL 100 MG TABLET (FP) PO SCH (21:31)
[2023-03-16] MEDS: MELATONIN 5 MG TABLETS PO SCH (21:31)
[2023-03-16] MEDS: ATORVASTATIN CA 40 MG TABLET (FP) PO SCH (21:32)
[2023-03-17] MEDS: LACTULOSE 20 GM/30 ML UDC (FOR ORAL USE ONLY) PO SCH ×2 (06:45→06:50)
[2023-03-17 08:15] VITALS: RESP 17; TEMP 96.3
[2023-03-17 09:00] VITALS: BP 123/77; PULSE 81
[2023-03-17] MEDS: PRENATAL VITAMINS W/ FOLIC ACID TABLET (FP) PO SCH (09:44)
[2023-03-17] MEDS: NICOTINE 21 MG/24 HOURS TOPICAL PATCH TD SCH (09:44)
== END 2023-03-17 10:30 | disposition home or self-care (01) | DRG 772 ==
LOC: YASAS 14:42 → Y3E 14:43
PROVIDERS: ADMIT Allergy & Immunology; ATTEND Psychiatry & Neurology Pain Medicine
PROC: HZ42ZZZ Group Counseling for Substance Abuse Treatment, Cognitive-Behavioral (ICD-10-PCS; principal; 2023-03-02)
DX: F10.20 Alcohol dependence, uncomplicated (principal); F14.20 Cocaine dependence, uncomplicated; F12.20 Cannabis dependence, uncomplicated; F17.210 Nicotine dependence, cigarettes, uncomplicated; F10.280 Alcohol dependence with alcohol-induced anxiety disorder; F10.282 Alcohol dependence with alcohol-induced sleep disorder; F10.24 Alcohol dependence with alcohol-induced mood disorder; E78.5 Hyperlipidemia, unspecified; I10 Essential (primary) hypertension; K04.7 Periapical abscess without sinus; R79.89 Other specified abnormal findings of blood chemistry; Z88.0 Allergy status to penicillin
CPT/HCPCS: 36415; 82140; 86803; 87635; 90686; G0008; J2315

== ENCOUNTER 2023-04-05 15:17 | Inpatient (IN) | payer OTHER ==
[2023-04-05 17:01] VITALS: BMI 25.1
[2023-04-05] MEDS ORDERED: TRIMETHOBENZAMIDE HCL 200MG/2ML INJ IM ONE ×2 (18:46→21:07)
[2023-04-05] MEDS ORDERED: MAGNESIUM HYDROX 2400MG/30ML ORAL SUSPENSION 30 ML CUP PO PRN (18:47)
[2023-04-05] MEDS ORDERED: chlordiazePOXIDE HCL 25 MG CAPSULE PO ONE (18:47)
[2023-04-05] MEDS ORDERED: P-EPHED 60MG/TRIPROLIDI 2.5MG TABLET PO PRN (18:47)
[2023-04-05] MEDS ORDERED: ACETAMINOPHEN 325 MG TABLET (FP) PO PRN (18:47)
[2023-04-05] MEDS ORDERED: POLYETHYLENE GLYCOL (HEALTHYLAX) 3350 17 GM PACKET PO PRN (18:47)
[2023-04-05] MEDS ORDERED: BENZOCAINE/MENTHOL (CHLORASEPTIC ) LOZENGE MM PRN (18:47)
[2023-04-05] MEDS ORDERED: ONDANSETRON *ODT* 4 MG TABLET SL PRN (18:47)
[2023-04-05] MEDS ORDERED: IBUPROFEN 400 MG TABLET (FP) PO PRN (18:47)
[2023-04-05] MEDS ORDERED: MAG HYDROX/AL HYDROX/SIMETH 30 ML UNIT-DOSE CUP PO PRN (18:47)
[2023-04-05] MEDS ORDERED: NICOTINE POLACRILEX 2 MG GUM BUC PRN (18:47)
[2023-04-05] MEDS ORDERED: chlordiazePOXIDE HCL 25 MG CAPSULE PO PRN (18:47)
[2023-04-05] MEDS ORDERED: BISMUTH SUBSALICYLATE 524 MG/30 ML PO PRN (18:47)
[2023-04-05] MEDS ORDERED: guaiFENesin 600 MG TABLET.ER (FP) PO PRN (18:47)
[2023-04-05] MEDS ORDERED: DICYCLOMINE HCL 10 MG CAPSULE PO PRN (18:47)
[2023-04-05] MEDS ORDERED: LOPERAMIDE HCL 2 MG CAPSULE PO PRN (18:47)
[2023-04-05] MEDS ORDERED: BENZONATATE 200 MG CAPSULE PO PRN (18:47)
[2023-04-05] MEDS ORDERED: chlordiazePOXIDE HCL 25 MG CAPSULE ONE (21:06)
[2023-04-05] MEDS: FAMOTIDINE 20 MG TABLET PO SCH (23:37)
[2023-04-05] MEDS: MELATONIN 5 MG TABLETS PO SCH (23:40)
[2023-04-05] MEDS: chlordiazePOXIDE HCL 25 MG CAPSULE PO SCH (23:40)
[2023-04-05] MEDS: THIAMINE HCL 100 MG TABLET (FP) PO SCH (23:41)
[2023-04-06] MEDS: chlordiazePOXIDE HCL 25 MG CAPSULE PO SCH ×4 (05:18→22:23)
[2023-04-06 10:31] LABS: HEMATOCRIT 39.6 % (35.4-49); HEMOGLOBIN 13.4 GM/dL (11.7-16.9); MCH 31.1 pg (25.7-33.7); MCHC 33.8 g/dl (32.0-35.9); MEAN CELL VOLUME 92.1 fl (80-96); MEAN PLT VOLUME 10.2 fl (7.5-11.1); PLATELET COUNT 82 10^3/uL (134-434); RDW 13.2 % (11.9-15.9)
[2023-04-06] MEDS: FAMOTIDINE 20 MG TABLET PO SCH (10:52)
[2023-04-06] MEDS: PRENATAL VITAMINS W/ FOLIC ACID TABLET (FP) PO SCH (10:52)
[2023-04-06] MEDS: METHOCARBAMOL 500 MG TABLET PO PRN (10:53)
[2023-04-06 10:56] LABS: CHLORIDE 106 mmol/L (98-107); SODIUM 139 mmol/L (136-145)
[2023-04-06 10:59] LABS: CALCIUM 8.3 mg/dL (8.5-10.1)
[2023-04-06 11:00] LABS: ALBUMIN 3.2 g/dl (3.4-5.0); ANION GAP 2 mmol/L (4-13); BLOOD UREA NITROGEN 13.4 mg/dL (7-18); CO2 31 mmol/L (21-32); GLUCOSE,RANDOM 92 mg/dL (74-106)
[2023-04-06 11:03] LABS: CREATININE 0.9 mg/dL (0.55-1.3); SGOT/AST 71 U/L (15-37); SGPT/ALT 97 U/L (13-61)
[2023-04-06 11:04] LABS: TOT PROT 6.9 g/dl (6.4-8.2)
[2023-04-06 11:05] LABS: BILIRUBIN,TOTAL 0.4 mg/dL (0.2-1)
[2023-04-06 11:06] LABS: ALK PHOS 68 U/L (45-117)
[2023-04-06 11:26] LABS: WHITE BLOOD COUNT 1.9 K/mm3 (4.0-10.0)
[2023-04-06] MEDS: IBUPROFEN 600 MG TABLET (FP) PO PRN (13:49)
[2023-04-06] MEDS ORDERED: TRIMETHOBENZAMIDE HCL 200MG/2ML INJ IM ONE (14:00)
[2023-04-06] MEDS: THIAMINE HCL 100 MG TABLET (FP) PO SCH (22:22)
[2023-04-06] MEDS: MELATONIN 5 MG TABLETS PO SCH (22:22)
[2023-04-06] MEDS: ATORVASTATIN CA 40 MG TABLET (FP) PO SCH (22:22)
[2023-04-07] MEDS: chlordiazePOXIDE HCL 25 MG CAPSULE PO SCH ×4 (05:10→22:20)
[2023-04-07] MEDS: IBUPROFEN 600 MG TABLET (FP) PO PRN (05:12)
[2023-04-07 08:49] LABS: HEMATOCRIT 38.5 % (35.4-49); HEMOGLOBIN 12.6 GM/dL (11.7-16.9); MCH 30.4 pg (25.7-33.7); MCHC 32.6 g/dl (32.0-35.9); MEAN CELL VOLUME 93.2 fl (80-96); MEAN PLT VOLUME 10.4 fl (7.5-11.1); PLATELET COUNT 82 10^3/uL (134-434); RBC 4.13 M/mm3 (4.00-5.60); RDW 12.8 % (11.9-15.9); WHITE BLOOD COUNT 2.4 K/mm3 (4.0-10.0)
[2023-04-07 09:41] LABS: ANISOCYTOSIS 0; MACROCYTOSIS 0
[2023-04-07] MEDS: PRENATAL VITAMINS W/ FOLIC ACID TABLET (FP) PO SCH (10:13)
[2023-04-07] MEDS: METHOCARBAMOL 500 MG TABLET PO PRN ×2 (10:13→22:23)
[2023-04-07] MEDS: FAMOTIDINE 20 MG TABLET PO SCH (10:13)
[2023-04-07] MEDS: ATORVASTATIN CA 40 MG TABLET (FP) PO SCH (22:20)
[2023-04-07] MEDS: MELATONIN 5 MG TABLETS PO SCH (22:21)
[2023-04-07] MEDS: THIAMINE HCL 100 MG TABLET (FP) PO SCH (22:22)
[2023-04-08] MEDS ORDERED: chlordiazePOXIDE HCL 10 MG CAPSULE PO PRN
[2023-04-08] MEDS: chlordiazePOXIDE HCL 10 MG CAPSULE PO SCH ×4 (05:14→22:11)
[2023-04-08] MEDS: IBUPROFEN 600 MG TABLET (FP) PO PRN (05:16)
[2023-04-08] MEDS: FAMOTIDINE 20 MG TABLET PO SCH (10:10)
[2023-04-08] MEDS: PRENATAL VITAMINS W/ FOLIC ACID TABLET (FP) PO SCH (10:10)
[2023-04-08] MEDS: METHOCARBAMOL 500 MG TABLET PO PRN ×2 (10:10→23:16)
[2023-04-08] MEDS: ATORVASTATIN CA 40 MG TABLET (FP) PO SCH (22:11)
[2023-04-08] MEDS: MELATONIN 5 MG TABLETS PO SCH (22:12)
[2023-04-08] MEDS: THIAMINE HCL 100 MG TABLET (FP) PO SCH (22:14)
[2023-04-09] MEDS: chlordiazePOXIDE HCL 10 MG CAPSULE PO SCH ×2 (05:12→17:20)
[2023-04-09 05:57] VITALS: RESP 16
[2023-04-09] MEDS: PRENATAL VITAMINS W/ FOLIC ACID TABLET (FP) PO SCH (09:51)
[2023-04-09] MEDS: FAMOTIDINE 20 MG TABLET PO SCH (09:51)
[2023-04-09] MEDS: METHOCARBAMOL 500 MG TABLET PO PRN (09:51)
[2023-04-09] MEDS: THIAMINE HCL 100 MG TABLET (FP) PO SCH (22:05)
[2023-04-09] MEDS: ATORVASTATIN CA 40 MG TABLET (FP) PO SCH (22:05)
[2023-04-09] MEDS: MELATONIN 5 MG TABLETS PO SCH (22:06)
[2023-04-10] MEDS ORDERED: chlordiazePOXIDE HCL 10 MG CAPSULE PO ONE (05:00)
[2023-04-10 09:06] VITALS: BP 132/86; PULSE 80; TEMP 97.9
[2023-04-10] MEDS: METHOCARBAMOL 500 MG TABLET PO PRN (09:30)
[2023-04-10] MEDS: FAMOTIDINE 20 MG TABLET PO SCH (09:30)
[2023-04-10] MEDS: PRENATAL VITAMINS W/ FOLIC ACID TABLET (FP) PO SCH (09:30)
== END 2023-04-10 11:30 | disposition other institution (70) | DRG 775 ==
LOC: YASAS 15:17 → Y6N 22:26
PROVIDERS: ADMIT Allergy & Immunology; ATTEND Surgery
PROC: HZ2ZZZZ Detoxification Services for Substance Abuse Treatment (ICD-10-PCS; principal; 2023-04-05)
DX: F10.230 Alcohol dependence with withdrawal, uncomplicated (principal); F12.20 Cannabis dependence, uncomplicated; F17.210 Nicotine dependence, cigarettes, uncomplicated; E78.5 Hyperlipidemia, unspecified; I10 Essential (primary) hypertension; K21.9 Gastro-esophageal reflux disease without esophagitis; D72.819 Decreased white blood cell count, unspecified; Z88.0 Allergy status to penicillin
CPT/HCPCS: 36415; 80053; 80307; 85025; 85027; 86780; 87635; 93005; 93010; Q0162

== ENCOUNTER 2023-04-12 16:18 | Inpatient (IN) | payer OTHER ==
[2023-04-12 17:13] VITALS: BMI 23.3
[2023-04-12] MEDS ORDERED: ACETAMINOPHEN 325 MG TABLET (FP) PO PRN (20:17)
[2023-04-12] MEDS ORDERED: MAG HYDROX/AL HYDROX/SIMETH 30 ML UNIT-DOSE CUP PO PRN (20:17)
[2023-04-12] MEDS ORDERED: NICOTINE POLACRILEX 2 MG GUM BUC PRN (20:17)
[2023-04-12] MEDS ORDERED: BISMUTH SUBSALICYLATE 524 MG/30 ML PO PRN (20:17)
[2023-04-12] MEDS ORDERED: P-EPHED 60MG/TRIPROLIDI 2.5MG TABLET PO PRN (20:17)
[2023-04-12] MEDS ORDERED: DICYCLOMINE HCL 10 MG CAPSULE PO PRN (20:17)
[2023-04-12] MEDS ORDERED: MAGNESIUM HYDROX 2400MG/30ML ORAL SUSPENSION 30 ML CUP PO PRN (20:17)
[2023-04-12] MEDS ORDERED: BENZONATATE 200 MG CAPSULE PO PRN (20:17)
[2023-04-12] MEDS ORDERED: METHOCARBAMOL 500 MG TABLET PO PRN (20:17)
[2023-04-12] MEDS ORDERED: IBUPROFEN 400 MG TABLET (FP) PO PRN (20:17)
[2023-04-12] MEDS ORDERED: hydrOXYzine PAMOATE 25 MG CAPSULE (FP) PO PRN (20:17)
[2023-04-12] MEDS ORDERED: guaiFENesin 600 MG TABLET.ER (FP) PO PRN (20:17)
[2023-04-12] MEDS ORDERED: POLYETHYLENE GLYCOL (HEALTHYLAX) 3350 17 GM PACKET PO PRN (20:17)
[2023-04-12] MEDS ORDERED: ONDANSETRON *ODT* 4 MG TABLET SL PRN (20:17)
[2023-04-12] MEDS ORDERED: BENZOCAINE/MENTHOL (CHLORASEPTIC ) LOZENGE MM PRN (20:17)
[2023-04-12] MEDS ORDERED: LOPERAMIDE HCL 2 MG CAPSULE PO PRN (20:17)
[2023-04-12] MEDS: MELATONIN 5 MG TABLETS PO SCH (22:23)
[2023-04-12] MEDS: THIAMINE HCL 100 MG TABLET (FP) PO SCH (22:23)
[2023-04-12] MEDS: BACITRACIN 0.9 GM PACKET TP SCH (22:23)
[2023-04-13] MEDS: BACITRACIN 0.9 GM PACKET TP SCH ×2 (10:12→22:11)
[2023-04-13] MEDS: FAMOTIDINE 20 MG TABLET PO SCH (10:13)
[2023-04-13] MEDS: PRENATAL VITAMINS W/ FOLIC ACID TABLET (FP) PO SCH (10:13)
[2023-04-13] MEDS: IBUPROFEN 600 MG TABLET (FP) PO PRN ×2 (10:13→22:12)
[2023-04-13] MEDS ORDERED: ATORVASTATIN CA 40 MG TABLET (FP) PO SCH (22:00)
[2023-04-13] MEDS: THIAMINE HCL 100 MG TABLET (FP) PO SCH (22:11)
[2023-04-13] MEDS: MELATONIN 5 MG TABLETS PO SCH (22:11)
[2023-04-14] MEDS: BACITRACIN 0.9 GM PACKET TP SCH (10:12)
[2023-04-14] MEDS: PRENATAL VITAMINS W/ FOLIC ACID TABLET (FP) PO SCH (10:12)
[2023-04-14] MEDS: FAMOTIDINE 20 MG TABLET PO SCH (10:12)
[2023-04-14] MEDS: IBUPROFEN 600 MG TABLET (FP) PO PRN (10:16)
[2023-04-14 13:27] VITALS: BP 131/81; PULSE 80; RESP 18; TEMP 97.9
== END 2023-04-14 14:49 | disposition other institution (70) | DRG 775 ==
LOC: YASAS 16:18 → Y3N 20:19
PROVIDERS: ADMIT Allergy & Immunology; ATTEND Surgery
PROC: HZ2ZZZZ Detoxification Services for Substance Abuse Treatment (ICD-10-PCS; principal; 2023-04-12)
DX: F10.220 Alcohol dependence with intoxication, uncomplicated (principal); F17.210 Nicotine dependence, cigarettes, uncomplicated; F41.9 Anxiety disorder, unspecified; F32.A Depression, unspecified; E78.5 Hyperlipidemia, unspecified; I10 Essential (primary) hypertension; S01.81XD Laceration without foreign body of other part of head, subsequent encounter; Y04.0XXD Assault by unarmed brawl or fight, subsequent encounter; Z88.0 Allergy status to penicillin
CPT/HCPCS: 36415; 80307; 87635

== ENCOUNTER 2023-04-14 14:55 | Inpatient (IN) | payer OTHER ==
[2023-04-14] MEDS ORDERED: FLU VACCINE (FLULAVAL) PF 60 MCG/0.5 ML SYRINGE 2023-2024 IM ONE (15:13)
[2023-04-14] MEDS ORDERED: MAG HYDROX/AL HYDROX/SIMETH 30 ML UNIT-DOSE CUP PO PRN (16:12)
[2023-04-14] MEDS ORDERED: NALOXONE HCL 0.4 MG/ML VIAL IVPUSH PRN (16:12)
[2023-04-14] MEDS ORDERED: COLLOIDAL OATMEAL 1 BAR EACH TP PRN (16:12)
[2023-04-14] MEDS ORDERED: BENZOCAINE/MENTHOL (CHLORASEPTIC ) LOZENGE MM PRN (16:12)
[2023-04-14] MEDS ORDERED: NALOXONE HCL (KLOXXADO) 8 MG SPRAY NS PRN (16:12)
[2023-04-14] MEDS ORDERED: ACETAMINOPHEN 325 MG TABLET (FP) PO PRN (16:12)
[2023-04-14] MEDS ORDERED: AMMONIUM LACTATE 12% LOTION 225 GM BOTTLE TP PRN (16:12)
[2023-04-14] MEDS ORDERED: METHOCARBAMOL 500 MG TABLET PO PRN (16:12)
[2023-04-14] MEDS ORDERED: hydrOXYzine PAMOATE 25 MG CAPSULE (FP) PO PRN (16:12)
[2023-04-14] MEDS ORDERED: BENZONATATE 200 MG CAPSULE PO PRN (16:12)
[2023-04-14] MEDS ORDERED: POLYETHYLENE GLYCOL (HEALTHYLAX) 3350 17 GM PACKET PO PRN (16:12)
[2023-04-14] MEDS ORDERED: guaiFENesin 600 MG TABLET.ER (FP) PO PRN (16:12)
[2023-04-14] MEDS ORDERED: MAGNESIUM HYDROX 2400MG/30ML ORAL SUSPENSION 30 ML CUP PO PRN (16:12)
[2023-04-14] MEDS ORDERED: LOPERAMIDE HCL 2 MG CAPSULE PO PRN (16:12)
[2023-04-14] MEDS: THIAMINE HCL 100 MG TABLET (FP) PO SCH (21:10)
[2023-04-14] MEDS: ATORVASTATIN CA 40 MG TABLET (FP) PO SCH (21:10)
[2023-04-14] MEDS: MELATONIN 5 MG TABLETS PO SCH (21:10)
[2023-04-15] MEDS: IBUPROFEN 600 MG TABLET (FP) PO PRN ×2 (09:53→21:08)
[2023-04-15] MEDS: PRENATAL VITAMINS W/ FOLIC ACID TABLET (FP) PO SCH (09:53)
[2023-04-15] MEDS: FAMOTIDINE 20 MG TABLET PO SCH (09:53)
[2023-04-15] MEDS: ATORVASTATIN CA 40 MG TABLET (FP) PO SCH (21:09)
[2023-04-15] MEDS: MELATONIN 5 MG TABLETS PO SCH (21:09)
[2023-04-15] MEDS: THIAMINE HCL 100 MG TABLET (FP) PO SCH (21:09)
[2023-04-16] MEDS: IBUPROFEN 600 MG TABLET (FP) PO PRN (08:39)
[2023-04-16] MEDS: LACTULOSE 20 GM/30 ML UDC (FOR ORAL USE ONLY) PO SCH ×2 (09:35→21:12)
[2023-04-16] MEDS: PRENATAL VITAMINS W/ FOLIC ACID TABLET (FP) PO SCH (09:36)
[2023-04-16] MEDS: FAMOTIDINE 20 MG TABLET PO SCH (09:36)
[2023-04-16] MEDS: ATORVASTATIN CA 40 MG TABLET (FP) PO SCH (21:12)
[2023-04-16] MEDS: THIAMINE HCL 100 MG TABLET (FP) PO SCH (21:12)
[2023-04-16] MEDS: MELATONIN 5 MG TABLETS PO SCH (21:12)
[2023-04-17] MEDS: FAMOTIDINE 20 MG TABLET PO SCH (09:18)
[2023-04-17] MEDS: PRENATAL VITAMINS W/ FOLIC ACID TABLET (FP) PO SCH (09:18)
[2023-04-17] MEDS: LACTULOSE 20 GM/30 ML UDC (FOR ORAL USE ONLY) PO SCH ×2 (09:19→21:14)
[2023-04-17] MEDS: BACITRACIN 0.9 GM PACKET TP SCH (10:53)
[2023-04-17] MEDS: MELATONIN 5 MG TABLETS PO SCH (21:15)
[2023-04-17] MEDS: ATORVASTATIN CA 40 MG TABLET (FP) PO SCH (21:15)
[2023-04-17] MEDS: THIAMINE HCL 100 MG TABLET (FP) PO SCH (21:15)
[2023-04-18] MEDS: LACTULOSE 20 GM/30 ML UDC (FOR ORAL USE ONLY) PO SCH ×2 (09:36→21:08)
[2023-04-18] MEDS: PRENATAL VITAMINS W/ FOLIC ACID TABLET (FP) PO SCH (09:37)
[2023-04-18] MEDS: FAMOTIDINE 20 MG TABLET PO SCH (09:37)
[2023-04-18] MEDS: BACITRACIN 0.9 GM PACKET TP SCH (09:37)
[2023-04-18] MEDS ORDERED: BENZOCAINE 20 % GEL TUBE MM PRN (14:49)
[2023-04-18] MEDS: DOXYCYCLINE HYCLATE 100 MG TABLET PO SCH (17:23)
[2023-04-18] MEDS ORDERED: AMOX TR/POT CLAV 500MG/125MG TABLETS (FP) PO SCH (17:30)
[2023-04-18] MEDS: MELATONIN 5 MG TABLETS PO SCH (21:08)
[2023-04-18] MEDS: THIAMINE HCL 100 MG TABLET (FP) PO SCH (21:08)
[2023-04-18] MEDS: IBUPROFEN 600 MG TABLET (FP) PO PRN (21:09)
[2023-04-18] MEDS: ATORVASTATIN CA 40 MG TABLET (FP) PO SCH (21:09)
[2023-04-19] MEDS: PRENATAL VITAMINS W/ FOLIC ACID TABLET (FP) PO SCH (09:36)
[2023-04-19] MEDS: DOXYCYCLINE HYCLATE 100 MG TABLET PO SCH ×2 (09:37→17:58)
[2023-04-19] MEDS: LACTULOSE 20 GM/30 ML UDC (FOR ORAL USE ONLY) PO SCH ×2 (09:37→21:03)
[2023-04-19] MEDS: BACITRACIN 0.9 GM PACKET TP SCH (09:37)
[2023-04-19] MEDS: FAMOTIDINE 20 MG TABLET PO SCH (09:37)
[2023-04-19 13:32] LABS: BASO % 0.5 % (0-2.0); EOS % 1.2 % (0-4.5); HEMATOCRIT 39.9 % (35.4-49); HEMOGLOBIN 13.8 GM/dL (11.7-16.9); MCH 31.4 pg (25.7-33.7); MCHC 34.5 g/dl (32.0-35.9); MEAN CELL VOLUME 90.8 fl (80-96); MEAN PLT VOLUME 9.7 fl (7.5-11.1); MONO % 10.8 % (3.8-10.2); NEUT % 64.5 % (42.8-82.8); PLATELET COUNT 196 10^3/uL (134-434); RBC 4.39 M/mm3 (4.00-5.60); RDW 13.2 % (11.9-15.9); WHITE BLOOD COUNT 5.1 K/mm3 (4.0-10.0)
[2023-04-19 13:37] LABS: INR 1.01 (0.83-1.09); PROTHROMBIN TIME (PATIENT) 11.7 SEC (9.7-13.0)
[2023-04-19 14:08] LABS: ANISOCYTOSIS 2+; MACROCYTOSIS 0; TEAR DROP CELLS 2+
[2023-04-19 15:24] LABS: BILIRUBIN,TOTAL 0.4 mg/dL (0.2-1)
[2023-04-19 15:25] LABS: ALBUMIN 3.5 g/dl (3.4-5.0); BLOOD UREA NITROGEN 15.2 mg/dL (7-18); CREATININE 0.8 mg/dL (0.55-1.3); TOT PROT 7.7 g/dl (6.4-8.2)
[2023-04-19 15:26] LABS: MAGNESIUM 1.9 mg/dL (1.8-2.4)
[2023-04-19] MEDS: THIAMINE HCL 100 MG TABLET (FP) PO SCH (21:03)
[2023-04-19] MEDS: ATORVASTATIN CA 40 MG TABLET (FP) PO SCH (21:03)
[2023-04-19] MEDS: MELATONIN 5 MG TABLETS PO SCH (21:03)
[2023-04-19 22:49] LABS: HIV INTERPRETATION PRESUMPTIVE POSITIVE (NEGATIVE)
[2023-04-20] MEDS: LACTULOSE 20 GM/30 ML UDC (FOR ORAL USE ONLY) PO SCH ×2 (10:02→21:23)
[2023-04-20] MEDS: PRENATAL VITAMINS W/ FOLIC ACID TABLET (FP) PO SCH (10:02)
[2023-04-20] MEDS: FAMOTIDINE 20 MG TABLET PO SCH (10:02)
[2023-04-20] MEDS: BACITRACIN 0.9 GM PACKET TP SCH (10:02)
[2023-04-20] MEDS: DOXYCYCLINE HYCLATE 100 MG TABLET PO SCH ×2 (10:03→17:43)
[2023-04-20] MEDS: ATORVASTATIN CA 40 MG TABLET (FP) PO SCH (21:21)
[2023-04-20] MEDS: THIAMINE HCL 100 MG TABLET (FP) PO SCH (21:21)
[2023-04-20] MEDS: MELATONIN 5 MG TABLETS PO SCH (21:22)
[2023-04-20] MEDS: IBUPROFEN 600 MG TABLET (FP) PO PRN (21:22)
[2023-04-21] MEDS: BACITRACIN 0.9 GM PACKET TP SCH (09:40)
[2023-04-21] MEDS: PRENATAL VITAMINS W/ FOLIC ACID TABLET (FP) PO SCH (09:40)
[2023-04-21] MEDS: DOXYCYCLINE HYCLATE 100 MG TABLET PO SCH ×2 (09:41→18:10)
[2023-04-21] MEDS: FAMOTIDINE 20 MG TABLET PO SCH (09:41)
[2023-04-21] MEDS: LACTULOSE 20 GM/30 ML UDC (FOR ORAL USE ONLY) PO SCH ×2 (09:41→21:12)
[2023-04-21] MEDS: MELATONIN 5 MG TABLETS PO SCH (21:12)
[2023-04-21] MEDS: ATORVASTATIN CA 40 MG TABLET (FP) PO SCH (21:13)
[2023-04-21] MEDS: THIAMINE HCL 100 MG TABLET (FP) PO SCH (21:13)
[2023-04-22] MEDS: BACITRACIN 0.9 GM PACKET TP SCH (09:44)
[2023-04-22] MEDS: PRENATAL VITAMINS W/ FOLIC ACID TABLET (FP) PO SCH (09:44)
[2023-04-22] MEDS: LACTULOSE 20 GM/30 ML UDC (FOR ORAL USE ONLY) PO SCH ×2 (09:44→21:08)
[2023-04-22] MEDS: FAMOTIDINE 20 MG TABLET PO SCH (09:45)
[2023-04-22] MEDS: DOXYCYCLINE HYCLATE 100 MG TABLET PO SCH ×2 (09:45→17:47)
[2023-04-22] MEDS: MELATONIN 5 MG TABLETS PO SCH (21:08)
[2023-04-22] MEDS: THIAMINE HCL 100 MG TABLET (FP) PO SCH (21:08)
[2023-04-22] MEDS: ATORVASTATIN CA 40 MG TABLET (FP) PO SCH (21:09)
[2023-04-22] MEDS: IBUPROFEN 400 MG TABLET (FP) PO PRN (21:11)
[2023-04-23] MEDS: BACITRACIN 0.9 GM PACKET TP SCH (09:35)
[2023-04-23] MEDS: PRENATAL VITAMINS W/ FOLIC ACID TABLET (FP) PO SCH (09:35)
[2023-04-23] MEDS: LACTULOSE 20 GM/30 ML UDC (FOR ORAL USE ONLY) PO SCH ×2 (09:35→21:06)
[2023-04-23] MEDS: DOXYCYCLINE HYCLATE 100 MG TABLET PO SCH ×2 (09:36→17:08)
[2023-04-23] MEDS: FAMOTIDINE 20 MG TABLET PO SCH (09:36)
[2023-04-23] MEDS: THIAMINE HCL 100 MG TABLET (FP) PO SCH (21:06)
[2023-04-23] MEDS: MELATONIN 5 MG TABLETS PO SCH (21:06)
[2023-04-23] MEDS: ATORVASTATIN CA 40 MG TABLET (FP) PO SCH (21:06)
[2023-04-24] MEDS: PRENATAL VITAMINS W/ FOLIC ACID TABLET (FP) PO SCH (09:30)
[2023-04-24] MEDS: BACITRACIN 0.9 GM PACKET TP SCH (09:30)
[2023-04-24] MEDS: FAMOTIDINE 20 MG TABLET PO SCH (09:31)
[2023-04-24] MEDS: DOXYCYCLINE HYCLATE 100 MG TABLET PO SCH ×2 (09:31→17:37)
[2023-04-24] MEDS ORDERED: NALTREXONE HCL 50 MG TABLET PO SCH (10:00)
[2023-04-24] MEDS: THIAMINE HCL 100 MG TABLET (FP) PO SCH (21:05)
[2023-04-24] MEDS: MELATONIN 5 MG TABLETS PO SCH (21:05)
[2023-04-24] MEDS: ATORVASTATIN CA 40 MG TABLET (FP) PO SCH (21:05)
[2023-04-24] MEDS: IBUPROFEN 600 MG TABLET (FP) PO PRN (21:06)
[2023-04-25] MEDS: FAMOTIDINE 20 MG TABLET PO SCH (09:39)
[2023-04-25] MEDS: DOXYCYCLINE HYCLATE 100 MG TABLET PO SCH (09:39)
[2023-04-25] MEDS: NALTREXONE HCL 50 MG TABLET PO SCH (09:39)
[2023-04-25] MEDS: BACITRACIN 0.9 GM PACKET TP SCH (09:39)
[2023-04-25] MEDS: PRENATAL VITAMINS W/ FOLIC ACID TABLET (FP) PO SCH (09:40)
[2023-04-25] MEDS: IBUPROFEN 400 MG TABLET (FP) PO PRN (17:24)
[2023-04-25 18:35] VITALS: RESP 18
[2023-04-25] MEDS: ATORVASTATIN CA 40 MG TABLET (FP) PO SCH (21:45)
[2023-04-25] MEDS: THIAMINE HCL 100 MG TABLET (FP) PO SCH (21:45)
[2023-04-25] MEDS: MELATONIN 5 MG TABLETS PO SCH (21:45)
[2023-04-25] MEDS: IBUPROFEN 600 MG TABLET (FP) PO PRN (23:33)
[2023-04-26] MEDS: IBUPROFEN 600 MG TABLET (FP) PO PRN ×2 (06:20→21:12)
[2023-04-26] MEDS: MECLIZINE HCL 12.5 MG TABLET PO PRN ×2 (09:12→17:53)
[2023-04-26] MEDS: FAMOTIDINE 20 MG TABLET PO SCH (10:02)
[2023-04-26] MEDS: BACITRACIN 0.9 GM PACKET TP SCH (10:02)
[2023-04-26] MEDS: NALTREXONE HCL 50 MG TABLET PO SCH (10:02)
[2023-04-26] MEDS: PRENATAL VITAMINS W/ FOLIC ACID TABLET (FP) PO SCH (10:03)
[2023-04-26] MEDS: MELATONIN 5 MG TABLETS PO SCH (21:11)
[2023-04-26] MEDS: THIAMINE HCL 100 MG TABLET (FP) PO SCH (21:12)
[2023-04-26] MEDS: ATORVASTATIN CA 40 MG TABLET (FP) PO SCH (21:12)
[2023-04-27] MEDS: MECLIZINE HCL 12.5 MG TABLET PO PRN ×2 (07:46→21:23)
[2023-04-27] MEDS: PRENATAL VITAMINS W/ FOLIC ACID TABLET (FP) PO SCH (09:57)
[2023-04-27] MEDS: FAMOTIDINE 20 MG TABLET PO SCH (09:57)
[2023-04-27] MEDS: BACITRACIN 0.9 GM PACKET TP SCH (09:58)
[2023-04-27] MEDS ORDERED: NALTREXONE MICROSPHERES (VIVITROL) 380 MG DISP.SYRIN IM ONE (10:00)
[2023-04-27] MEDS: THIAMINE HCL 100 MG TABLET (FP) PO SCH (21:18)
[2023-04-27] MEDS: ATORVASTATIN CA 40 MG TABLET (FP) PO SCH (21:18)
[2023-04-27] MEDS: MELATONIN 5 MG TABLETS PO SCH (21:19)
[2023-04-27] MEDS: IBUPROFEN 400 MG TABLET (FP) PO PRN (21:23)
[2023-04-28 06:45] VITALS: TEMP 97.1
[2023-04-28 09:25] VITALS: BP 120/73; PULSE 83
[2023-04-28] MEDS: PRENATAL VITAMINS W/ FOLIC ACID TABLET (FP) PO SCH (09:32)
[2023-04-28] MEDS: BACITRACIN 0.9 GM PACKET TP SCH (09:33)
[2023-04-28] MEDS: FAMOTIDINE 20 MG TABLET PO SCH (09:34)
[2023-04-28] MEDS: MECLIZINE HCL 12.5 MG TABLET PO PRN (10:11)
== END 2023-04-28 10:40 | disposition home or self-care (01) | DRG 772 ==
LOC: YASAS 14:55 → Y5N 14:58
PROVIDERS: ADMIT Allergy & Immunology; ATTEND Psychiatry & Neurology Pain Medicine
PROC: HZ42ZZZ Group Counseling for Substance Abuse Treatment, Cognitive-Behavioral (ICD-10-PCS; principal; 2023-04-14)
DX: F10.20 Alcohol dependence, uncomplicated (principal); F17.210 Nicotine dependence, cigarettes, uncomplicated; F10.24 Alcohol dependence with alcohol-induced mood disorder; R75 Inconclusive laboratory evidence of human immunodeficiency virus [HIV]; R79.89 Other specified abnormal findings of blood chemistry; Z88.0 Allergy status to penicillin
CPT/HCPCS: 36415; 80053; 82140; 82652; 83735; 85025; 85610; 86803; 87389; J2315